=== PATIENT | female | born 1975 | race Caucasian/White ===

== ENCOUNTER 2018-06-24 15:25 | Emergency (ER) | payer SELFPAY ==
[2018-06-24] MEDS ORDERED: Naproxen 500 MG TAB PO STA (16:26)
--- NOTE | 2018-06-24 16:43 | ED PDOC ---
Upper Extremity Pain/Injury Time Seen by Provider: 06/24/18 16:11 Chief Complaint (Nursing): Finger,Hand,&Wrist Chief Complaint (Provider): Finger,Hand,&Wrist History Per: Patient History/Exam Limitations: no limitations Onset/Duration Of Symptoms: Hrs (since this morning) Current Symptoms Are (Timing): Still Present Quality: "Pain" Additional Complaint(s): 43 y/o female presents to the ED for evaluation of atraumatic, right wrist pain after lifting a bottle of water this morning when she felt a pop in the right wrist. Patient rates that pain as a 6/10 since injury occurred. Patient states pain worsens with movement. Patient is right hand dominant. Otherwise: (-) past history of wrist injury, (-) medications prior to arrival, (-) other complaints at this time. PMD: None Provided Past Medical History Reviewed: Historical Data, Nursing Documentation, Vital Signs Vital Signs: Last Vital Signs Temp 98.4 F 06/24/18 15:58 Pulse 82 06/24/18 15:58 Resp 16 06/24/18 15:58 BP 119/73 06/24/18 15:58 Pulse Ox 99 06/24/18 15:58 - Medical History PMH: No Chronic Diseases - Surgical History Surgical History: (x1) - Family History Family History: States: Unknown Family Hx - Social History Current smoker - smoking cessation education provided: No Alcohol: None Drugs: Denies - Home Medications Home Medications: Ambulatory Orders Medication Instructions Recorded Cyclobenzaprine [Flexeril] 5 mg PO TID PRN #9 tab 05/13/16 Naproxen 500 mg PO BID #20 tab 05/13/16 Oxycodone HCl/Acetaminophen 1 tab PO Q6 PRN #6 tab 05/13/16 [Percocet 325 mg-5 mg] Naproxen 500 mg PO BID PRN #20 tab 06/24/18 - Allergies Allergies/Adverse Reactions: Allergies Allergy/AdvReac Type Severity Reaction Status Date / Time No Known Allergies Allergy Verified 05/13/16 20:19 Review of Systems ROS Statement: Except As Marked, All Systems Reviewed And Found Negative Musculoskeletal: Positive for: Arm Pain (Right wrist pain ) Physical Exam - Reviewed Nursing Documentation Reviewed: Yes Vital Signs Reviewed: Yes - Physical Exam Comments: GENERAL APPEARANCE: Patient is awake, alert, oriented x 3, in no acute distress. SKIN: Warm, dry; (-) cyanosis. NECK: Supple, FROM ENT: Mucus membranes moist. Airway patent, (-) stridor. HEART AND CARDIOVASCULAR: (-) irregularity CHEST AND RESPIRATORY: (-) rales, (-) rhonchi, (-) wheezes; breath sounds equal. Respirations even and nonlabored, speaking in full sentences. WRIST: (+) Tenderness to the distal right radius, decreased ROM secondary to pain (-) scaphoid tenderness (-) effusion, (-) erythema, (-) skin break, (-) warmth, (-) ecchymosis, (-) deformity. Sensation and capillary refill intact. (+ ) distal pulses. Elbow, hand and digits: (-) tenderness. NEURO AND PSYCH: Mental status as above. - ECG O2 Sat by Pulse Oximetry: 99 (RA) Pulse Ox Interpretation: Normal Medical Decision Making Medical Decision Making: Time: 1626 Impression: Acute wrist pain (sprain vs fracture) Plan: -- Naproxen 500 mg PO -- Wrist, Right 3 Views XR -- Re-evaluation Time: 1705 XR RESULTS FINDINGS: BONES: Normal. No fracture. JOINTS: Normal. No dislocation. SOFT TISSUES: Normal. OTHER FINDINGS: None. IMPRESSION: Normal right wrist radiographs. 1755 Dion bandage applied by ED RN. Placement and application verified by Emily Nina. NV intact after placement. On re-evaluation, patient reports improvement of symptoms. On exam, patient remains AAOx3, in no acute distress. On exam, neck is supple, lungs CTA, cardiac RRR, neuro exam shows no focal findings. VSS, stable for discharge. Diagnostic results d/w the patient in great detail. Dx of acute wrist pain/ sprain d/w the patient. Based on history, exam and diagnostic results plan will be for discharge and outpatient follow up. Advised to follow up with primary care physician/ortho in 1-2 days without fail. Advised to take medication as prescribed. Return to the emergency room at any time for any new or worsening symptoms. Patient states she fully agrees with and understands discharge instructions. States that she agrees with the plan and disposition. Verbalized and repeated discharge instructions and plan. I have given the patient opportunity to ask any additional questions. Scribe Attestation: Documented by Kishan Vences, acting as a scribe for Janell Diaz PA-C. Provider Scribe Attestation: All medical record entries made by the Scribe were at my direction and personally dictated by me. I have reviewed the chart and agree that the record accurately reflects my personal performance of the history, physical exam, medical decision making, and the department course for this patient. I have also personally directed, reviewed, and agree with the discharge instructions and disposition. Disposition - Clinical Impression Clinical Impression: Acute wrist pain, Wrist sprain - Patient ED Disposition Is Patient to be Admitted: No Counseled Patient/Family Regarding: Studies Performed, Diagnosis, Need For Followup, Rx Given - Disposition Referrals: Jimmie Rene MD [Medical Doctor] - [facility] [place] [Outside] Disposition: Routine/Home Disposition Time: 17:55 Condition: STABLE Additional Instructions: The emergency medical care you received today was directed at your acute symptoms. If you were prescribed any medication, please fill it and take as directed. It may take several days for your symptoms to resolve. Return to the Emergency Department if your symptoms worsen, do not improve, or if you have any other problems. Please contact your doctor in 2 days for re-evaluation and follow up / or call one of the physicians/clinics you have been referred to that are listed on the Patient Visit Information form that is included in your discharge packet. Bring any paperwork you were given at discharge with you along with any medications you are taking to your follow up visit. Our treatment cannot replace ongoing medical care by a primary care provider (PCP) outside of the emergency department. [email or web address] today. Prescriptions: Naproxen 500 mg PO BID PRN #20 tab PRN Reason: Pain, Moderate (4-7) Instructions: Wrist Sprain (DC), Common Wrist Injuries Forms: [employer] (Thai) Print Language: THAI - POA Present On Arrival: None
--- NOTE | 2018-06-24 17:47 | RAD ---
Date of service: 06/24/2018 PROCEDURE: Right Wrist Radiographs. HISTORY: Joint Pain. No history of recent/ related trauma provided COMPARISON: None. FINDINGS: BONES: Normal. No fracture. JOINTS: Normal. No dislocation. SOFT TISSUES: Normal. OTHER FINDINGS: None. IMPRESSION: Normal right wrist radiographs.
[2018-06-24 19:09] VITALS: BP 128/76; PULSE 77; RESP 18; TEMP 98
[2018-06-28 22:21] VITALS: O2SAT 99
== END 2018-06-24 18:45 | disposition home or self-care (01) ==
LOC: H.ER 15:25
DX: S63.501A Unspecified sprain of right wrist, initial encounter (principal); X50.9XXA Other and unspecified overexertion or strenuous movements or postures, initial encounter; Y92.89 Other specified places as the place of occurrence of the external cause